=== PATIENT | female | born 1970 | race Caucasian/White ===

== ENCOUNTER 2020-01-03 01:51 | Outpatient (CLI) | payer BC, SELFPAY ==
[2020-01-03 19:52] LABS: SARS-CoV-2 RNA PCR Negative
== END 2020-01-03 01:52 | disposition home or self-care (01) ==
LOC: ANHCOVIDDT 01:51
PROVIDERS: PCP Family Medicine; Visit Provider Internal Medicine Gastroenterology
DX: Z01.812 Encounter for preprocedural laboratory examination (principal); Z20.828 Contact with and (suspected) exposure to other viral communicable diseases
CPT/HCPCS: 87635; C9803; U0003

== ENCOUNTER 2020-01-06 00:23 | Day surgery (SDC) | payer BC, SELFPAY ==
[2019-12-31 08:48] VITALS: BMI 27.5
[2020-01-06] MEDS: LACTATED RINGERS 1,000 ML 150 ML IV CONT (07:06)
[2020-01-06 07:08] VITALS: BP 108/69; PULSE 72; RESP 16; TEMP 37.2; O2SAT 100; BMI 28.5
--- NOTE | 2020-01-06 07:30 | P.CONGI_ITS ---
Assessment and Plan Assessment and plan (1) Encounter for screening colonoscopy: Code(s): Z12.11 - Encounter for screening for malignant neoplasm of colon Status: Acute Assessment and Plan: Patient appears to be at average risk for colon polyps. Plan is for screening colonoscopy at this time. Further recommendations will be given after endoscopy. GI Consult Note Consult date/time: 01/06/20 07:30 HPI: Lincoln Packer is a 49 year old female Seen in evaluation at the request of Dr. Vitale. Patient presents for screening colonoscopy. Patient's current weight appetite bowel movements are normal. Patient denies abdominal pain. She has had no blood in his stools. Family history is noncontributory. Review of Systems Review of Systems: All systems reviewed & are unremarkable except as noted in HPI and below PMFSH Past Medical History Medical History (Updated 01/06/20 @ 07:52 by Saulo Marcial MD) Atypical seizure CAP (community acquired pneumonia) Hx of benign essential tremor Rectal fissure Family History Family History Grandparent Carcinoma of colon Family history of primary malignant neoplasm of liver Social History Social History Smoking status: Never smoker Alcohol intake: never Substance use: never Substance use type: does not use Living arrangements: with family Spiritual care concerns: No Meds Home Medications and Allergies Home Medications Medication Instructions Recorded Confirmed Type albuterol sulfate 90 mcg/actuation 2 puff INHALATION Q4H PRN #8.5 gm 01/02/19 01/06/20 Rx aerosol inhaler divalproex 250 mg tablet,delayed 750 mg PO Q12H tablet 01/09/19 01/06/20 History release fluticasone furoate 200 1 inhalation INHALATION DAILY #60 02/08/19 01/06/20 Rx mcg-vilanterol 25 mcg/dose each inhalation powder sucralfate 1 gram tablet 1 gm PO Q4H PRN #100 tablet 03/18/19 01/06/20 Rx omeprazole 40 mg capsule,delayed 40 mg PO DAILY #90 cap 10/14/19 01/06/20 Rx release fluticasone propionate 50 1 spray NASAL BID #19.8 ml 08/25/20 11/16/20 Rx mcg/actuation nasal spray,suspension sumatriptan succinate 6 mg SUBCUT PRN PRN 01/06/20 01/06/20 History Allergies Allergy/AdvReac Type Severity Reaction Status Date / Time No Known Allergies Allergy Unverified 01/06/20 06:47 Vital Signs Vital Signs - 24 hr 01/06/20 07:08 Temperature 99.0 F Pulse Rate 72 Respiratory Rate 16 Blood Pressure 108/69 Pulse Oximetry 100 Exam Narrative: Exam Narrative: Physical exam reveals patient be alert. Vital signs stable. HEENT exam unremarkable. Lungs are clear to auscultation and percussion. Heart is without murmur or extra sounds. Abdominal exam bowel sounds are present soft nontender with no hepatosplenomegaly. Digital external rectal exam is normal.
--- NOTE | 2020-01-06 07:45 | WPDANESEPPF ---
Anes - Initial Pre Proc Eval Procedure: Operation Date: 01/06/20 08:00 Proposed Procedures p Screening Colonoscopy - Saulo Marcial MD Date/Time: 01/06/20 07:45 Surgeon: Saulo Marcial MD Pre Op Diagnosis: Neoplasm Screening Patient Data Age: 49 Gender: F Height: 5 ft 3 in Weight: 73.1 kg Last Vital Signs Temp 99.0 F 01/06/20 07:08 Pulse 72 01/06/20 07:08 Resp 16 01/06/20 07:08 BP 108/69 01/06/20 07:08 Pulse Ox 100 01/06/20 07:08 Allergies Allergy/AdvReac Type Severity Reaction Status Date / Time No Known Allergies Allergy Unverified 01/06/20 06:47 Home Medications Medication Instructions Recorded Confirmed Type albuterol sulfate 90 mcg/actuation 2 puff INHALATION Q4H PRN #8.5 gm 01/02/19 01/06/20 Rx aerosol inhaler divalproex 250 mg tablet,delayed 750 mg PO Q12H tablet 01/09/19 01/06/20 History release fluticasone furoate 200 1 inhalation INHALATION DAILY #60 02/08/19 01/06/20 Rx mcg-vilanterol 25 mcg/dose each inhalation powder sucralfate 1 gram tablet 1 gm PO Q4H PRN #100 tablet 03/18/19 01/06/20 Rx omeprazole 40 mg capsule,delayed 40 mg PO DAILY #90 cap 10/14/19 01/06/20 Rx release fluticasone propionate 50 1 spray NASAL BID #19.8 ml 10/15/19 01/06/20 Rx mcg/actuation nasal spray,suspension sumatriptan succinate 6 mg SUBCUT PRN PRN 01/06/20 01/06/20 History Patient hx anesthesia problems: none Family hx anesthesia problems: none PMFSH Past Medical History Medical History (Updated 11/21/19 @ 14:56 by Leo Vitale MD) Atypical seizure CAP (community acquired pneumonia) Hx of benign essential tremor Rectal fissure Family History Family History Grandparent Carcinoma of colon Family history of primary malignant neoplasm of liver Social History Social History Smoking status: Never smoker Alcohol intake: never Substance use: never Substance use type: does not use Living arrangements: with family Spiritual care concerns: No Anes - Eval Final PreProcedure Day of Procedure 01/06/20 07:45 Patient weight: overweight Heart: regular rate and rhythm Lungs: clear to auscultation Airway: Mallampati scale class III Neurological: alert and oriented Last oral intake: >/= 8 hours ASA classification: III Emergent: no Anesthetic plan: proceed Anesthesia type and monitoring: general GIVS and standard monitoring Informed Consent: The patient's anesthetic plan and its attendant risks and benefits were discussed with the patient/family/POA. Questions were solicited and answers provided to the satisfaction of the patient/family/POA.
[2020-01-06 08:20] VITALS: BP 105/59; PULSE 72; RESP 20; O2SAT 97
[2020-01-06 08:30] VITALS: BP 103/57; PULSE 66; RESP 22; O2SAT 99
[2020-01-06 08:40] VITALS: BP 119/66; PULSE 66; RESP 18; O2SAT 98
== END 2020-01-06 09:00 | disposition home or self-care (01) ==
PROVIDERS: PCP Family Medicine; Visit Provider Internal Medicine Gastroenterology
PROC: 0DJD8ZZ Inspection of Lower Intestinal Tract, Via Natural or Artificial Opening Endoscopic (ICD-10-PCS; CPT 45378; principal; 2020-01-06 08:00)
DX: Z12.11 Encounter for screening for malignant neoplasm of colon (principal); K64.8 Other hemorrhoids; G40.909 Epilepsy, unspecified, not intractable, without status epilepticus
CPT/HCPCS: 45378; J2704; J7120

== ENCOUNTER → 2023-03-07 15:20 | Outpatient (CLI) | payer BC, SELFPAY ==
--- NOTE | ~2023-03-07 | XR_ITS ---
XR shoulder LT min 2V DATE: 03/07/2023 15:35 INDICATION: Left shoulder pain TECHNIQUE: 4 views COMPARISON: None FINDINGS: No fracture, dislocation, periosteal reaction or bone destruction or abnormal soft tissue c alcification. IMPRESSION: No significant abnormality Reviewed, dictated and finalized at location L. ING ATTENDANT IMPRESSION: No significant abnormality
== END ==
PROVIDERS: PCP Nurse Practitioner Adult Health; Visit Provider Nurse Practitioner Adult Health
DX: M25.512 Pain in left shoulder (principal)
CPT/HCPCS: 73030

== ENCOUNTER 2023-08-14 15:36 | Outpatient (CLI) | payer BC, SELFPAY ==
--- NOTE | ~2023-08-14 | MR_ITS ---
EXAMINATION: MR brain/brain stem wo con DATE: 08/14/2023 16:36 INDICATION: Left eye vision change with headache. TECHNIQUE: Magnetic resonance imaging (MRI) of the brain and brainstem was performed without intraven ous contrast. COMPARISON: None. FINDINGS: There is no intracranial hemorrhage, acute infarction, or abnormal intracranial mass lesion . There are scattered areas of nonspecific increased T2-weighted signal intensity in the cerebral whi te matter, which is within normal limits for the patient's age. The ventricles are normal in size. Th e paranasal sinuses are clear. The orbits are normal. The mastoid air cells are normal. IMPRESSION: 1. Normal aging brain. Reviewed, dictated and finalized at location A. IMPRESSION: 1. Normal aging brain.
== END 2023-08-14 15:37 | disposition home or self-care (01) ==
LOC: ANHIMG 15:42
PROVIDERS: PCP Nurse Practitioner Adult Health; Visit Provider Student in an Organized Health Care Education/Training Program
DX: G43.109 Migraine with aura, not intractable, without status migrainosus (principal)
CPT/HCPCS: 70551

== ENCOUNTER 2024-03-26 15:55 | Outpatient (CLI) | payer BC, SELFPAY ==
--- NOTE | ~2024-03-26 | XR_ITS ---
XR shoulder LT min 2V 03/26/2024 16:05 Indication: Left shoulder pain Procedure: 4 views left shoulder Comparison: 03/07/2023 Findings: No fracture, subluxation or dislocation. 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 No soft tissue abnormality. No foreign bodies. Impression: 1: No acute bone or joint abnormality. Reviewed, dictated and finalized at location B. [employer] EDUCATIONAL SPECIALIST Impression: 1: No acute bone or joint abnormality.
== END 2024-03-26 15:56 | disposition home or self-care (01) ==
LOC: MICIMG 15:56
PROVIDERS: PCP Nurse Practitioner Adult Health; Visit Provider Physician Assistant Surgical
DX: M25.512 Pain in left shoulder (principal)
CPT/HCPCS: 73030